=== PATIENT | female | born 1995 | race Hispanic/Latino ===

== ENCOUNTER 2021-01-23 09:15 | Outpatient (CLI) | payer OTHER ==
[2021-01-23 22:20] LABS: SARS-CoV-2 PCR by NAA Not Detected (NotDetected)
== END 2021-01-23 09:16 | disposition home or self-care (01) ==
LOC: CSHLAB 09:15
PROVIDERS: ATTEND Obstetrics & Gynecology
DX: Z20.822 Contact with and (suspected) exposure to COVID-19 (principal)
CPT/HCPCS: 87635; U0003; U0005

== ENCOUNTER 2021-01-26 05:30 | Inpatient (IN) | payer OTHER ==
[~2021-01-26 05:30] MED LIST: Acetaminophen 500 MG TAB PO PRN; Butorphanol Tartrate 1 MG/ML VIAL SLOW IVP PRN; Carboprost 250 MCG/ML AMP IM PRN; Diphenoxylate HCl/Atropine Tablet PO PRN; HYDROcodone/Acetaminophen 5/325 mg Tablet PO PRN; Ibuprofen 800 MG TAB PO PRN; Lidocaine 1% (PF) 30 ML VIAL SC PRN; Methylergonovine 0.2 MG/ML VIAL IM PRN; Misoprostol 200 MCG TAB PR PRN; Ondansetron PF 4 MG/2 ML Vial IVP PRN; Promethazine HCl 25 MG/ML VIAL IM PRN; hydrALAZINE 20 MG/ML VIAL SLOW IVP PRN
[2021-01-26 06:20] VITALS: BMI 39.1
[2021-01-26] MEDS ORDERED: NS w/ Oxytocin 30 units 500 ML ONE ×2 (06:42→14:48)
[2021-01-26] MEDS ORDERED: NS w/ Oxytocin 30 units 500 ML IVPB PRN (06:50)
[2021-01-26] MEDS: Lactated Ringer's 1,000 ML IV SCH ×4 (07:00→15:42)
[2021-01-26] MEDS ORDERED: NS w/ Oxytocin 30 units 500 ML IVPB SCH ×2 (07:00)
[2021-01-26 07:23] LABS: Hemoglobin 11.6 g/dL (12.0-15.5); Mean Corpuscular HGB CONC 33.3 g/dL (32.0-36.0); Mean Corpuscular Hemoglobin 28.9 pg (27.0-33.0); Mean Corpuscular Volume 86.8 fl (81.6-98.3); Mean Platelet Volume 12.8 fl (7.4-10.4); Platelet Count 234 10x3/uL (150-450); RBC Distribution Width 12.7 % (11.5-14.5); Red Blood Cell (RBC) Count 4.01 10x6/uL (3.90-5.03); White Blood Cell (WBC) Count 8.4 10x3/uL (3.5-10.5)
[2021-01-26 08:05] LABS: Syphilis Antibody Nonreactive (Nonreactive); Syphilis Antibody Index 0.04 S/CO (<1.00 Non-Reactive)
[2021-01-26 08:07] LABS: Hep B Surf Ag Non-Reactive S/CO (NonReactive)
[2021-01-26 08:08] LABS: HBSAg Index 0.19 S/CO (0-0.99)
[2021-01-26] MEDS ORDERED: Fentanyl 4 mcg/Bup 0.1% Cadd 100 ML ONE (12:01)
[2021-01-26] MEDS ORDERED: Carboprost 250 MCG/ML AMP ONE (14:47)
[2021-01-26] MEDS ORDERED: Misoprostol 200 MCG TAB ONE (14:47)
[2021-01-26] MEDS ORDERED: Methylergonovine 0.2 MG/ML VIAL ONE (14:48)
[2021-01-26] MEDS ORDERED: Benzocaine-Menthol 82.5 ML CAN TOP PRN (18:04)
[2021-01-26] MEDS ORDERED: Zolpidem Tartrate 5 MG TAB PO PRN (18:04)
[2021-01-26] MEDS ORDERED: Measles/Mumps/Rubella 10 MCG/0.5 ML VIAL SC ONE (18:04)
[2021-01-26] MEDS ORDERED: hydrALAZINE 20 MG/ML VIAL SLOW IVP PRN (18:04)
[2021-01-26] MEDS ORDERED: Adacel (T-DAP) 0.5 ML SYRINGE IM ONE (18:04)
[2021-01-26] MEDS ORDERED: diphenhydrAMINE 25 MG CAP PO PRN (18:04)
[2021-01-26] MEDS ORDERED: Varicella virus, LIVE 0.5 ML VIAL SC ONE (18:04)
[2021-01-26] MEDS ORDERED: Ferrous Sulfate 325 MG TAB PO SCH ×2 (18:04→18:15)
[2021-01-26] MEDS ORDERED: Methylergonovine 0.2 MG/ML VIAL IM PRN (18:04)
[2021-01-26] MEDS ORDERED: Lanolin Ointment 7 GM TUBE TOP PRN (18:04)
[2021-01-26] MEDS ORDERED: HYDROcodone/Acetaminophen 5/325 mg Tablet PO PRN (18:04)
[2021-01-26] MEDS ORDERED: Milk Of Magnesia 30 ML UDCUP PO PRN (18:04)
[2021-01-26] MEDS ORDERED: Bisacodyl 10 MG SUPP PR PRN (18:04)
[2021-01-26] MEDS ORDERED: Ondansetron PF 4 MG/2 ML Vial IVP PRN (18:04)
[2021-01-26] MEDS ORDERED: Preparation H Ointment 28 GM TUBE PR PRN (18:04)
[2021-01-26] MEDS ORDERED: Promethazine HCl 25 MG/ML VIAL IM PRN (18:04)
[2021-01-26] MEDS ORDERED: NS w/ Oxytocin 30 units 500 ML IV SCH (18:15)
[2021-01-26] MEDS: Ibuprofen 800 MG TAB PO SCH (21:05)
[2021-01-26] MEDS: Docusate Calcium (SURFAK) 240 MG CAP PO SCH (21:05)
[2021-01-27] MEDS: Ibuprofen 800 MG TAB PO SCH ×2 (06:04→14:20)
[2021-01-27 06:31] LABS: Hemoglobin 9.6 g/dL (12.0-15.5); Mean Corpuscular HGB CONC 32.3 g/dL (32.0-36.0); Mean Corpuscular Hemoglobin 28.7 pg (27.0-33.0); Mean Corpuscular Volume 88.9 fl (81.6-98.3); Mean Platelet Volume 12.4 fl (7.4-10.4); Platelet Count 193 10x3/uL (150-450); RBC Distribution Width 12.9 % (11.5-14.5); Red Blood Cell (RBC) Count 3.34 10x6/uL (3.90-5.03); White Blood Cell (WBC) Count 9.4 10x3/uL (3.5-10.5)
[2021-01-27] MEDS ORDERED: Prenatal Vitamin 1 TAB PO SCH (09:00)
[2021-01-27] MEDS: Docusate Calcium (SURFAK) 240 MG CAP PO SCH (10:03)
[2021-01-27 11:13] VITALS: BP 129/71; TEMP 98.1
== END 2021-01-27 17:46 | disposition home or self-care (01) | DRG 807 ==
LOC: CSHLD 05:50 → CSHPP 18:30
PROVIDERS: ADMIT Obstetrics & Gynecology; ATTEND Obstetrics & Gynecology
PROC: 10E0XZZ Delivery of Products of Conception, External Approach (ICD-10-PCS; principal; 2021-01-26)
PROC: 10907ZC Drainage of Amniotic Fluid, Therapeutic from Products of Conception, Via Natural or Artificial Opening (ICD-10-PCS; 2021-01-26)
PROC: 3E033VJ Introduction of Other Hormone into Peripheral Vein, Percutaneous Approach (ICD-10-PCS; 2021-01-26)
DX: O69.81X0 Labor and delivery complicated by cord around neck, without compression, not applicable or unspecified (principal); Z37.0 Single live birth; Z3A.39 39 weeks gestation of pregnancy
CPT/HCPCS: 36415; 51702; 85027; 86780; 86850; 86900; 86901; 87340; J2210; J2590

== ENCOUNTER 2021-10-22 20:29 | Emergency (ER) | payer OTHER ==
[2021-10-23 17:40] LABS: SARS-CoV-2 PCR by NAA Not Detected (NotDetected)
== END 2021-10-22 21:20 | disposition home or self-care (01) ==
LOC: CSHERS 20:29
DX: J06.9 Acute upper respiratory infection, unspecified (principal); Z20.822 Contact with and (suspected) exposure to COVID-19
CPT/HCPCS: 87804; 99284; U0003; U0005

== ENCOUNTER 2021-10-31 19:32 | Emergency (ER) | payer OTHER ==
[2021-10-31] MEDS ORDERED: Ondansetron PF 4 MG/2 ML Vial ONE ×2 (20:44→22:09)
[2021-10-31 20:53] LABS: #Monocytes 0.4 10x3/uL (0.0-1.1); #Neutrophils 4.7 10x3/uL (1.5-8.4); %Basophils 0.4 % (0.0-2.0); %Eosinophils 0.5 % (0.0-6.0); %Monocytes 5.6 % (0.0-10.0); %Neutrophils 62.2 % (40.0-75.0); Hemoglobin 13.1 g/dL (12.0-15.5); Mean Corpuscular HGB CONC 33.6 g/dL (32.0-36.0); Mean Corpuscular Hemoglobin 29.4 pg (27.0-33.0); Mean Corpuscular Volume 87.4 fl (81.6-98.3); Mean Platelet Volume 11.5 fl (7.4-10.4); Platelet Count 315 10x3/uL (150-450); RBC Distribution Width 12.3 % (11.5-14.5); Red Blood Cell (RBC) Count 4.46 10x6/uL (3.90-5.03); White Blood Cell (WBC) Count 7.5 10x3/uL (3.5-10.5)
[2021-10-31 20:58] LABS: BHCG - Serum Negative (NEGATIVE); Pregs Control Background? CLEAR/WHITE (CLR/WHITE); Pregs Control Bar Appear? YES (CONTROL BAR)
[2021-10-31 21:05] LABS: Bilirubin Neg (Negative); Blood, Urine 10 (Negative); Clarity Clear (Clear); Glucose, Urine (Dipstick) Normal (Negative); Ketone, Urine 15 mg/dL (Negative); Leukocyte 25 (Negative); Nitrite Negative (Negative); Protein, Urine (Dipstick) Negative (Neg-Trace); Specific Gravity, Urine 1.015 (1.002-1.036); Urobilinogen Normal mg/dL (Less than 2)
[2021-10-31 21:06] LABS: ALT (SGPT) 10 U/L (8-55); AST (SGOT) 14 U/L (5-34); Albumin 4.4 g/dL (3.5-5.0); Alkaline Phosphatase 77 U/L (40-110); Anion Gap 16 mmol/L (10-20); BUN (Urea Nitrogen) 6 mg/dL (7.0-18.7); Bilirubin, Total 0.4 mg/dL (0.2-1.2); Calc. Creatinine Clearance 0 mL/min (70-130); Calcium 9.2 mg/dL (7.8-10.44); Carbon Dioxide 22 mmol/L (22-29); Chloride 108 mmol/L (98-107); Globulin 2.9 g/dL (2.4-3.5); Glucose 89 mg/dL (70-105); Potassium 3.7 mmol/L (3.5-5.1); Protein, Total 7.3 g/dL (6.0-8.3); Sodium 142 mmol/L (136-145)
[2021-10-31 21:18] LABS: Bacteria/HPF 2+ HPF (None Seen); Mucous/LPF 1+ LPF (<2+); RBC/HPF 0-3 HPF (0-3); Squamous Epithelial 0-3 HPF (0-3); WBC/HPF 0-3 HPF (0-3)
[2021-11-01 17:18] LABS: SARS-CoV-2 PCR by NAA Not Detected (NotDetected)
== END 2021-10-31 22:27 | disposition home or self-care (01) ==
LOC: CSHERS 19:32
DX: B34.9 Viral infection, unspecified (principal); R00.2 Palpitations; Z20.822 Contact with and (suspected) exposure to COVID-19
CPT/HCPCS: 71045; 80053; 81003; 81015; 84484; 84703; 85025; 93005; 96374; 96376; J2405; U0003; U0005

== ENCOUNTER 2022-09-02 21:37 | Day surgery (SDC) | payer OTHER ==
[2022-09-02] MEDS ORDERED: hydrALAZINE 20 MG/ML VIAL SLOW IVP PRN (22:20)
[2022-09-02] MEDS ORDERED: Lactated Ringer's 1,000 ML IV SCH ×2 (22:30→23:00)
[2022-09-02 23:04] LABS: AST (SGOT) 18 U/L (5-34); Albumin 3.2 g/dL (3.5-5.0); Alkaline Phosphatase 224 U/L (40-110); Anion Gap 15 mmol/L (10-20); BUN (Urea Nitrogen) 10 mg/dL (7.0-18.7); Calc. Creatinine Clearance 0 mL/min (70-130); Calcium 8.5 mg/dL (7.8-10.44); Carbon Dioxide 18 mmol/L (22-29); Chloride 109 mmol/L (98-107); Estimated GFR 88; Globulin 2.8 g/dL (2.4-3.5); Glucose 107 mg/dL (70-105); Potassium 3.9 mmol/L (3.5-5.1); Sodium 138 mmol/L (136-145)
[2022-09-02 23:05] LABS: #Monocytes 0.4 10x3/uL (0.0-1.1); #Neutrophils 5.3 10x3/uL (1.5-8.4); %Basophils 0.2 % (0.0-2.0); %Eosinophils 0.3 % (0.0-6.0); %Lymphocytes 11.6 % (18.0-47.0); %Monocytes 6.5 % (0.0-10.0); %Neutrophils 80.9 % (40.0-75.0); Hemoglobin 11.1 g/dL (12.0-15.5); Mean Corpuscular HGB CONC 34.2 g/dL (32.0-36.0); Mean Corpuscular Volume 87.8 fl (81.6-98.3); Mean Platelet Volume 12.2 fl (7.4-10.4); Platelet Count 202 10x3/uL (150-450); RBC Distribution Width 12.4 % (11.5-14.5); White Blood Cell (WBC) Count 6.6 10x3/uL (3.5-10.5)
[2022-09-02 23:22] LABS: ALT (SGPT) 16 U/L (8-55); Bilirubin, Total 0.5 mg/dL (0.2-1.2)
[2022-09-03 00:38] LABS: Bilirubin Neg (Negative); Blood, Urine Negative (Negative); Clarity Clear (Clear); Glucose, Urine (Dipstick) Normal (Negative); Ketone, Urine 150 mg/dL (Negative); Leukocyte 100 (Negative); Nitrite Negative (Negative); Protein, Urine (Dipstick) Negative (Neg-Trace); Specific Gravity, Urine 1.015 (1.005-1.030); pH, Urine 6.5 (5.0-9.0)
[2022-09-03 00:48] LABS: Bacteria/HPF 1+ HPF (None Seen); RBC/HPF 0-3 HPF (0-3)
[2022-09-03] MEDS ORDERED: Oseltamivir 75 MG CAP PO SCH (02:00)
[2022-09-03 02:01] VITALS: BMI 27.4
== END 2022-09-03 02:15 | disposition home or self-care (01) ==
LOC: CSHLD/OP 21:37
PROVIDERS: ATTEND Obstetrics & Gynecology
DX: O98.513 Other viral diseases complicating pregnancy, third trimester (principal); J10.1 Influenza due to other identified influenza virus with other respiratory manifestations; Z3A.35 35 weeks gestation of pregnancy; Z79.899 Other long term (current) drug therapy; Z90.49 Acquired absence of other specified parts of digestive tract
CPT/HCPCS: 80053; 81003; 81015; 85025; 87631; 87804; 96360; 96361; 99284

== ENCOUNTER 2022-09-26 05:28 | Inpatient (IN) | payer OTHER ==
[~2022-09-26 05:28] MED LIST changes: +Lactated Ringer's 1,000 ML IV SCH; +NS w/ Oxytocin 30 units 500 ML IV SCH
[2022-09-26] MEDS ORDERED: Penicillin G Potassium 5 MILL.UNITS in Sodium Chloride 0.9% 100 ML IVPB SCH (05:45)
[2022-09-26 06:43] VITALS: BMI 47.4
[2022-09-26] MEDS ORDERED: Bupivacaine 0.25% HCL 30 ML VIAL ONE (07:00)
[2022-09-26 08:17] LABS: Hemoglobin 11.4 g/dL (12.0-15.5); Mean Corpuscular HGB CONC 34.7 g/dL (32.0-36.0); Mean Corpuscular Hemoglobin 30.3 pg (27.0-33.0); Mean Corpuscular Volume 87.5 fl (81.6-98.3); Mean Platelet Volume 13.3 fl (7.4-10.4); Platelet Count 205 10x3/uL (150-450); RBC Distribution Width 12.9 % (11.5-14.5); Red Blood Cell (RBC) Count 3.76 10x6/uL (3.90-5.03); White Blood Cell (WBC) Count 6.1 10x3/uL (3.5-10.5)
[2022-09-26 08:59] LABS: SARS-CoV-2 NAA Rapid Test Not Detected (NotDetected)
[2022-09-26 09:13] LABS: HBSAg Index 0.16 S/CO (0-0.99); Hep B Surf Ag Non-Reactive S/CO (NonReactive)
[2022-09-26 09:14] LABS: Syphilis Antibody Nonreactive (Nonreactive); Syphilis Antibody Index 0.05 S/CO (<1.00 Non-Reactive)
[2022-09-26] MEDS: Penicillin G 2.5 MILL.units 2.5 MILL.UNITS in Premix Bag 1 BAG IVPB SCH ×2 (10:57→17:35)
[2022-09-26] MEDS ORDERED: Fentanyl 2 mcg/Bup 0.1% Cadd 100 ML ONE (11:06)
[2022-09-26] MEDS ORDERED: Acetaminophen 325 MG TAB PO PRN (14:17)
[2022-09-26] MEDS ORDERED: Moisturizing Cream (Eucerin) 113 GM JAR TOP PRN (14:17)
[2022-09-26] MEDS ORDERED: Ondansetron PF 4 MG/2 ML Vial IVP PRN ×2 (14:17→15:58)
[2022-09-26] MEDS ORDERED: diphenhydrAMINE 50 MG/ML VIAL IVP PRN (14:17)
[2022-09-26] MEDS ORDERED: Promethazine HCl 25 MG/ML VIAL IM PRN ×2 (14:17→15:58)
[2022-09-26] MEDS ORDERED: ePHEDrine Sulfate 50 MG/10 ML VIAL SLOW IVP PRN (14:17)
[2022-09-26] MEDS ORDERED: Lactated Ringer's 500 ML IV PRN (14:17)
[2022-09-26] MEDS ORDERED: Naloxone HCl 0.4 mg/ml Vial IVP PRN ×2 (14:17)
[2022-09-26] MEDS ORDERED: Communication Order-Pharmacy FS SCH (14:30)
[2022-09-26] MEDS ORDERED: Fentanyl 2 mcg/Bupivacaine 0.1% Cassette 100 ML EPIDURAL SCH (14:30)
[2022-09-26] MEDS ORDERED: Milk Of Magnesia 30 ML UDCUP PO PRN (15:58)
[2022-09-26] MEDS ORDERED: Varicella virus, LIVE 0.5 ML VIAL SC ONE (15:58)
[2022-09-26] MEDS ORDERED: diphenhydrAMINE 25 MG CAP PO PRN (15:58)
[2022-09-26] MEDS ORDERED: Boostrix 0.5 ML (Tdap) VIAL (>/=7 yrs of age) IM ONE (15:58)
[2022-09-26] MEDS ORDERED: Benzocaine-Menthol 82.5 ML CAN TOP PRN (15:58)
[2022-09-26] MEDS ORDERED: Methylergonovine 0.2 MG/ML VIAL IM PRN (15:58)
[2022-09-26] MEDS ORDERED: Measles/Mumps/Rubella 10 MCG/0.5 ML VIAL SC ONE (15:58)
[2022-09-26] MEDS ORDERED: Preparation H Ointment 28 GM TUBE PR PRN (15:58)
[2022-09-26] MEDS ORDERED: NS w/ Oxytocin 30 units 500 ML IV SCH (15:58)
[2022-09-26] MEDS ORDERED: hydrALAZINE 20 MG/ML VIAL SLOW IVP PRN (15:58)
[2022-09-26] MEDS ORDERED: Bisacodyl 10 MG SUPP PR PRN (15:58)
[2022-09-26] MEDS ORDERED: Misoprostol 200 MCG TAB VAG PRN (15:58)
[2022-09-26] MEDS ORDERED: Lanolin Ointment 7 GM TUBE TOP PRN (15:58)
[2022-09-26] MEDS: Ferrous Sulfate 325 MG TAB PO SCH (17:35)
[2022-09-26] MEDS ORDERED: HYDROcodone/Acetaminophen 5/325 mg Tablet PO PRN (17:44)
[2022-09-26] MEDS: Ibuprofen 800 MG TAB PO SCH (21:31)
[2022-09-26] MEDS: Docusate 100 MG CAP PO SCH (21:31)
[2022-09-27 04:49] LABS: Hemoglobin 10.4 g/dL (12.0-15.5); Mean Corpuscular HGB CONC 33.7 g/dL (32.0-36.0); Mean Corpuscular Hemoglobin 29.7 pg (27.0-33.0); Mean Corpuscular Volume 88.3 fl (81.6-98.3); Mean Platelet Volume 12.5 fl (7.4-10.4); Platelet Count 212 10x3/uL (150-450); White Blood Cell (WBC) Count 8.5 10x3/uL (3.5-10.5)
[2022-09-27] MEDS: Ibuprofen 800 MG TAB PO SCH ×2 (05:02→14:07)
[2022-09-27] MEDS: Ferrous Sulfate 325 MG TAB PO SCH (07:34)
[2022-09-27] MEDS ORDERED: Prenatal Vitamin 1 TAB PO SCH (09:00)
[2022-09-27] MEDS: Docusate 100 MG CAP PO SCH (09:02)
[2022-09-27 11:49] VITALS: BP 115/75; TEMP 97.5
== END 2022-09-27 15:50 | disposition home or self-care (01) | DRG 807 ==
LOC: CSHLD 05:28 → CSHPP 15:25
PROVIDERS: ADMIT Obstetrics & Gynecology; ATTEND Obstetrics & Gynecology
PROC: 10E0XZZ Delivery of Products of Conception, External Approach (ICD-10-PCS; principal; 2022-09-26)
DX: O36.8130 Decreased fetal movements, third trimester, not applicable or unspecified (principal); Z37.0 Single live birth; Z3A.39 39 weeks gestation of pregnancy; Z20.822 Contact with and (suspected) exposure to COVID-19; O99.824 Streptococcus B carrier state complicating childbirth
CPT/HCPCS: 36415; 85027; 86780; 86850; 86900; 86901; 87340; J2540; J2590; J3490; S0020; U0002